=== PATIENT | female | born 1965 | race African-American/Black ===

== ENCOUNTER 2020-06-20 17:03 | Emergency (ER) | payer MEDICAID ==
[~2020-06-20] VITALS: Ht 162.6 cm; Wt 62.0 kg
[2020-06-20] MEDS ORDERED: MORPHINE SULFATE 4 MG/ML CPJ (NOT FOR IM USE) IV STA (17:36)
[2020-06-20] MEDS ORDERED: SODIUM CHLORIDE 0.9% 1,000 ML IV ONE (17:36)
[2020-06-20] MEDS ORDERED: ONDANSETRON HCL 4MG/2ML INJ IV STA (17:36)
[2020-06-20 17:54] LABS: BASOPHILS % 0.4 % (0.0-2.0); HEMATOCRIT. 42.3 % (36.0-48.0); HEMOGLOBIN. 13.7 g/dL (12.0-16.0); LYMPHOCYTES % 10.9 % (20.0-50.0); MEAN CORPUSCULAR VOLUME 83.3 fL (81.0-99.0); MEAN PLATELET VOLUME 10.1 fl (7.4-10.4); MONOCYTES % 5.6 % (2.0-8.0); NEUTROPHILS % 83.1 % (40.0-76.0); PLATELET 183 x1000/uL (130-400); RED BLOOD CELL COUNT 5.08 mill/uL (4.2-5.4); RED CELL DISTRIBUTION WIDTH 13.9 % (11.6-14.6)
[2020-06-20 18:04] LABS: CHLORIDE 101 mEq/L (98-107)
[2020-06-20] MEDS ORDERED: MORPHINE SULFATE 4 MG/ML CPJ (NOT FOR IM USE) IV ONE (19:00)
[2020-06-20] MEDS ORDERED: ONDANSETRON HCL 4MG/2ML INJ IV ONE ×2 (19:00→21:00)
[2020-06-20 19:21] LABS: INR 1.1; PROTHROMBIN TIME 11.7 sec (9.6-11.0)
[2020-06-20] MEDS ORDERED: METRONIDAZOLE 500 MG PREMIX 100 ML IV ONE (20:15)
[2020-06-20] MEDS ORDERED: CEFTRIAXONE 1 G PREMIX 50 ML IV ONE (20:15)
[2020-06-20 21:00] LABS: CLARITY URINE CLEAR (CLEAR); COLOR URINE YELLOW (YELLOW); KETONES URINE 4+ (NEGATIVE); LEUKOCYTE ESTERASE URINE NEGATIVE (NEGATIVE); NITRITE URINE NEGATIVE (NEGATIVE); OCCULT BLOOD URINE 2+ (NEGATIVE); PROTEIN URINE 1+ (NEGATIVE); UROBILINOGEN URINE 0.2 E.U./dL (0.2-1.0)
[2020-06-20] MEDS ORDERED: MORPHINE SULFATE 2 MG/ML CPJ (NOT FOR IM USE) IV ONE (21:00)
[2020-06-20 21:40] VITALS: BP 153/75
== END 2020-06-20 22:33 | disposition home or self-care (01) ==
LOC: ER 17:03
DX: K52.9 Noninfective gastroenteritis and colitis, unspecified (principal); R10.9 Unspecified abdominal pain; Z85.038 Personal history of other malignant neoplasm of large intestine; Z98.890 Other specified postprocedural states
CPT/HCPCS: 36415; 74176; 80053; 81003; 83690; 85025; 85610; 96374; 96375; 96376; 99284; J0696; J2270; J2405; J3490; J7030

== ENCOUNTER 2020-06-21 08:06 | Inpatient (IN) | payer MEDICAID, OTHER ==
[~2020-06-21] VITALS: Ht 160 cm; Wt 62.6 kg
[2020-06-21] MEDS ORDERED: MORPHINE SULFATE 4 MG/ML CPJ (NOT FOR IM USE) IV STA (09:25)
[2020-06-21] MEDS ORDERED: ONDANSETRON HCL 4MG/2ML INJ IV STA (09:25)
[2020-06-21 09:52] LABS: BASOPHILS % 0.5 % (0.0-2.0); HEMATOCRIT. 41.1 % (36.0-48.0); HEMOGLOBIN. 13.4 g/dL (12.0-16.0); LYMPHOCYTES % 10.5 % (20.0-50.0); MEAN CORPUSCULAR HEMOGLOBIN 27.1 pg (28.0-32.0); MEAN CORPUSCULAR VOLUME 83.3 fL (81.0-99.0); PLATELET 187 x1000/uL (130-400); RED BLOOD CELL COUNT 4.94 mill/uL (4.2-5.4); RED CELL DISTRIBUTION WIDTH 13.9 % (11.6-14.6)
[2020-06-21] MEDS ORDERED: METRONIDAZOLE 500 MG PREMIX 100 ML IV ONE (10:00)
[2020-06-21] MEDS ORDERED: CEFTRIAXONE 1 G PREMIX 50 ML IV ONE (10:00)
[2020-06-21 10:03] LABS: INR 1.1; PROTHROMBIN TIME 11.4 sec (9.6-11.0)
[2020-06-21 11:48] LABS: CHLORIDE 101 mEq/L (98-107)
[2020-06-21 11:49] LABS: COLOR URINE YELLOW (YELLOW); KETONES URINE 3+ (NEGATIVE); LEUKOCYTE ESTERASE URINE TRACE (NEGATIVE); NITRITE URINE NEGATIVE (NEGATIVE); OCCULT BLOOD URINE 1+ (NEGATIVE); PROTEIN URINE NEGATIVE (NEGATIVE); SPECIFIC GRAVITY URINE 1.012 (1.005-1.030); UROBILINOGEN URINE 0.2 E.U./dL (0.2-1.0)
[2020-06-21 11:54] LABS: CLARITY URINE HAZY (CLEAR)
[2020-06-21] MEDS ORDERED: ONDANSETRON HCL 4MG/2ML INJ IV PRN (12:00)
[2020-06-21] MEDS: DEXT 5%/0.45% NACL 1000ML 1,000 ML IV SCH (12:35)
[2020-06-21] MEDS: MORPHINE SULFATE 2 MG/ML CPJ (NOT FOR IM USE) IV PRN ×2 (13:17→19:51)
[2020-06-21 14:53] LABS: INR 1.1; PARTIAL THROMBOPLASTIN TIME 25.5 sec (23.4-31.0); PROTHROMBIN TIME 11.5 sec (9.6-11.0)
[2020-06-21] MEDS ORDERED: DIATR MEGLU/DIATRIZOATE SOLN 120ML ONE (14:57)
[2020-06-21 20:00] VITALS: BP 123/66
[2020-06-22] VITALS: BP 102/58
[2020-06-22 04:00] VITALS: BP 127/67
[2020-06-22] MEDS: DEXT 5%/0.45% NACL 1000ML 1,000 ML IV SCH (06:05)
[2020-06-22 07:04] LABS: BASOPHILS % 0.2 % (0.0-2.0); EOSINOPHILS % 0.2 % (0.0-5.0); HEMATOCRIT. 35.5 % (36.0-48.0); HEMOGLOBIN. 11.8 g/dL (12.0-16.0); LYMPHOCYTES % 27.5 % (20.0-50.0); MEAN CORPUSCULAR HEMOGLOBIN 27.6 pg (28.0-32.0); MEAN CORPUSCULAR VOLUME 83.3 fL (81.0-99.0); MEAN PLATELET VOLUME 10.6 fl (7.4-10.4); MONOCYTES % 10.1 % (2.0-8.0); PLATELET 157 x1000/uL (130-400); RED BLOOD CELL COUNT 4.27 mill/uL (4.2-5.4); RED CELL DISTRIBUTION WIDTH 13.9 % (11.6-14.6)
[2020-06-22 08:00] VITALS: BP 115/56
[2020-06-22 08:00] LABS: CHLORIDE 106 mEq/L (98-107)
[2020-06-22 08:08] LABS: PHOSPHORUS 3.1 mg/dL (2.5-4.9)
[2020-06-22] MEDS ORDERED: PANTOPRAZOLE SODIUM 40 MG/VIAL IV SCH (09:00)
[2020-06-22 12:00] VITALS: BP 121/66
[2020-06-22 13:50] VITALS: BP 121/66
== END 2020-06-22 14:25 | disposition home or self-care (01) | DRG 247 ==
LOC: ER 08:06 → 6EST 10:27 → ENRESERV 15:18
PROVIDERS: ADMIT Internal Medicine; ATTEND Internal Medicine
DX: K56.609 Unspecified intestinal obstruction, unspecified as to partial versus complete obstruction (principal); D72.829 Elevated white blood cell count, unspecified; F12.90 Cannabis use, unspecified, uncomplicated; Z85.038 Personal history of other malignant neoplasm of large intestine; Z90.49 Acquired absence of other specified parts of digestive tract
CPT/HCPCS: 36415; 71045; 74018; 74250; 80048; 80053; 80076; 81003; 83605; 83735; 84100; 85025; 93005; 93970; 97161; 97166; 99291; C9113; J0696; J2270; J2405; J3490; Q9963